=== PATIENT | female | born 1990 | race Caucasian/White ===

== ENCOUNTER 2022-10-08 17:18 | Inpatient (IN) | payer OTHER ==
[~2022-10-08 17:18] MED LIST: Bupivacaine 0.25% HCL 30 ML VIAL ONE; ePHEDrine Sulfate 50 MG/10 ML VIAL ONE
[2022-10-08] MEDS ORDERED: Misoprostol 200 MCG TAB PR PRN (19:17)
[2022-10-08] MEDS ORDERED: hydrALAZINE 20 MG/ML VIAL SLOW IVP PRN ×3 (19:17)
[2022-10-08] MEDS ORDERED: Docusate 100 MG CAP PO PRN (19:17)
[2022-10-08] MEDS ORDERED: HYDROcodone/Acetaminophen 5/325 mg Tablet PO PRN ×2 (19:17)
[2022-10-08] MEDS ORDERED: Diphenoxylate HCl/Atropine Tablet PO PRN ×2 (19:17)
[2022-10-08] MEDS ORDERED: Labetalol HCl 100 MG/20 ML VIAL SLOW IVP PRN ×2 (19:17)
[2022-10-08] MEDS ORDERED: Ondansetron PF 4 MG/2 ML Vial IVP PRN (19:17)
[2022-10-08] MEDS ORDERED: Lidocaine 1% (PF) 30 ML VIAL SC PRN (19:17)
[2022-10-08] MEDS ORDERED: Ibuprofen 800 MG TAB PO PRN (19:17)
[2022-10-08] MEDS ORDERED: Butorphanol Tartrate 1 MG/ML VIAL SLOW IVP PRN (19:17)
[2022-10-08] MEDS ORDERED: Lactated Ringer's 1,000 ML IV SCH (19:17)
[2022-10-08] MEDS ORDERED: Acetaminophen 500 MG TAB PO PRN (19:17)
[2022-10-08] MEDS ORDERED: Zolpidem Tartrate 5 MG TAB PO PRN (19:17)
[2022-10-08] MEDS ORDERED: Calcium Gluc 4.6 MEQ/10 ML (100 MG/ML) SLOW IVP PRN (19:17)
[2022-10-08] MEDS ORDERED: Promethazine HCl 25 MG/ML VIAL IM PRN (19:17)
[2022-10-08] MEDS ORDERED: NS w/ Oxytocin 30 units 500 ML IV SCH ×2 (19:17)
[2022-10-08] MEDS ORDERED: Carboprost 250 MCG/ML AMP IM PRN (19:17)
[2022-10-08] MEDS ORDERED: Lorazepam 2 MG/ML VIAL SLOW IVP PRN (19:17)
[2022-10-08 19:37] LABS: Mean Corpuscular HGB CONC 33.2 g/dL (32.0-36.0); Mean Corpuscular Hemoglobin 30.1 pg (27.0-33.0); Mean Corpuscular Volume 90.4 fl (81.6-98.3); Mean Platelet Volume 10.7 fl (7.4-10.4); Platelet Count 245 10x3/uL (150-450); RBC Distribution Width 14.6 % (11.5-14.5); Red Blood Cell (RBC) Count 3.66 10x6/uL (3.90-5.03); White Blood Cell (WBC) Count 12.6 10x3/uL (3.5-10.5)
[2022-10-08] MEDS ORDERED: Misoprostol 100 MCG TAB ONE (19:55)
[2022-10-08 19:56] LABS: Syphilis Antibody Nonreactive (Nonreactive); Syphilis Antibody Index 0.05 S/CO (<1.00 Non-Reactive)
[2022-10-08 19:58] LABS: HBSAg Index 0.33 S/CO (0-0.99); HIV (1/2) Antibody/Antigen Non-Reactive (NonReactive); HIV 1/2 INDEX 0.09 S/CO (<1.00); Hep B Surf Ag Non-Reactive S/CO (NonReactive)
[2022-10-08 20:06] LABS: SARS-CoV-2 NAA Rapid Test Not Detected (NotDetected)
[2022-10-08 20:08] LABS: ALT (SGPT) 21 U/L (8-55); AST (SGOT) 23 U/L (5-34); Albumin 3.7 g/dL (3.5-5.0); Alkaline Phosphatase 126 U/L (40-110); Anion Gap 18 mmol/L (10-20); BUN (Urea Nitrogen) 9 mg/dL (7.0-18.7); Bilirubin, Total 0.3 mg/dL (0.2-1.2); Calc. Creatinine Clearance 0 mL/min (70-130); Calcium 9.4 mg/dL (7.8-10.44); Carbon Dioxide 17 mmol/L (22-29); Chloride 104 mmol/L (98-107); Estimated GFR 111; Globulin 2.7 g/dL (2.4-3.5); Glucose 158 mg/dL (70-105); Potassium 4.1 mmol/L (3.5-5.1); Protein, Total 6.4 g/dL (6.0-8.3); Sodium 135 mmol/L (136-145)
[2022-10-08] MEDS ORDERED: Labetalol HCl 200 MG TAB PO SCH (21:00)
[2022-10-08] MEDS: Misoprostol 100 MCG TAB VAG SCH (23:55)
[2022-10-08 23:57] VITALS: BMI 34.1
[2022-10-09] MEDS ORDERED: Butorphanol Tartrate 1 MG/ML VIAL ONE (18:17)
[2022-10-09] MEDS ORDERED: Fentanyl 2 mcg/Bup 0.1% Cadd 100 ML ONE (19:32)
[2022-10-09] MEDS ORDERED: Naloxone HCl 0.4 mg/ml Vial IVP PRN ×2 (19:50)
[2022-10-09] MEDS ORDERED: Moisturizing Cream (Eucerin) 113 GM JAR TOP PRN (19:50)
[2022-10-09] MEDS ORDERED: diphenhydrAMINE 50 MG/ML VIAL IVP PRN (19:50)
[2022-10-09] MEDS ORDERED: Ondansetron PF 4 MG/2 ML Vial IVP PRN (19:50)
[2022-10-09] MEDS ORDERED: Acetaminophen 325 MG TAB PO PRN (19:50)
[2022-10-09] MEDS ORDERED: ePHEDrine Sulfate 50 MG/10 ML VIAL SLOW IVP PRN (19:50)
[2022-10-09] MEDS ORDERED: Promethazine HCl 25 MG/ML VIAL IM PRN (19:50)
[2022-10-09] MEDS ORDERED: Lactated Ringer's 500 ML IV PRN (19:50)
[2022-10-09] MEDS ORDERED: Fentanyl 2 mcg/Bupivacaine 0.1% Cassette 100 ML EPIDURAL SCH (20:00)
[2022-10-09] MEDS ORDERED: Communication Order-Pharmacy FS SCH (20:00)
[2022-10-10] MEDS ORDERED: Lidocaine 1% (PF) 30 ML VIAL ONE (06:06)
[2022-10-10] MEDS ORDERED: diphenhydrAMINE 25 MG CAP PO PRN (08:13)
[2022-10-10] MEDS ORDERED: HYDROcodone/Acetaminophen 5/325 mg Tablet PO PRN ×2 (08:13)
[2022-10-10] MEDS ORDERED: Misoprostol 200 MCG TAB VAG PRN (08:13)
[2022-10-10] MEDS ORDERED: Benzocaine-Menthol 82.5 ML CAN TOP PRN (08:13)
[2022-10-10] MEDS ORDERED: Milk Of Magnesia 30 ML UDCUP PO PRN (08:13)
[2022-10-10] MEDS ORDERED: Lanolin Ointment 7 GM TUBE TOP PRN (08:13)
[2022-10-10] MEDS ORDERED: Ondansetron PF 4 MG/2 ML Vial IVP PRN (08:13)
[2022-10-10] MEDS ORDERED: Bisacodyl 10 MG SUPP PR PRN (08:13)
[2022-10-10] MEDS ORDERED: Zolpidem Tartrate 5 MG TAB PO PRN (08:13)
[2022-10-10] MEDS ORDERED: Preparation H Ointment 28 GM TUBE PR PRN (08:13)
[2022-10-10] MEDS ORDERED: Boostrix 0.5 ML (Tdap) VIAL (>/=7 yrs of age) IM ONE (08:13)
[2022-10-10] MEDS ORDERED: hydrALAZINE 20 MG/ML VIAL SLOW IVP PRN (08:13)
[2022-10-10] MEDS ORDERED: Witch Hazel-Glycerin 1 EACH JAR TOP PRN (08:14)
[2022-10-10] MEDS ORDERED: Acetaminophen 325 MG TAB PO PRN (08:14)
[2022-10-10] MEDS ORDERED: NS w/ Oxytocin 30 units 500 ML IV SCH (08:15)
[2022-10-10] MEDS: Prenatal Vitamin 1 TAB PO SCH (14:30)
[2022-10-10] MEDS: Misoprostol 100 MCG TAB VAG SCH ×3 (14:30→14:32)
[2022-10-10] MEDS: Docusate 100 MG CAP PO SCH ×2 (14:30→21:22)
[2022-10-10] MEDS: Ibuprofen 800 MG TAB PO SCH ×2 (14:50→21:22)
[2022-10-10] MEDS: Ferrous Sulfate 325 MG TAB PO SCH (15:19)
[2022-10-11 04:18] LABS: Hemoglobin 9.5 g/dL (12.0-15.5); Mean Corpuscular HGB CONC 32.6 g/dL (32.0-36.0); Mean Corpuscular Hemoglobin 30.2 pg (27.0-33.0); Mean Corpuscular Volume 92.4 fl (81.6-98.3); Mean Platelet Volume 10.2 fl (7.4-10.4); Platelet Count 198 10x3/uL (150-450); RBC Distribution Width 14.8 % (11.5-14.5); Red Blood Cell (RBC) Count 3.15 10x6/uL (3.90-5.03); White Blood Cell (WBC) Count 15.1 10x3/uL (3.5-10.5)
[2022-10-11] MEDS: Ibuprofen 800 MG TAB PO SCH ×2 (06:01→13:43)
[2022-10-11 08:03] VITALS: BP 121/87; TEMP 97.8
[2022-10-11] MEDS: Prenatal Vitamin 1 TAB PO SCH (09:14)
[2022-10-11] MEDS: Docusate 100 MG CAP PO SCH (09:14)
[2022-10-11] MEDS: Ferrous Sulfate 325 MG TAB PO SCH (09:14)
== END 2022-10-11 16:10 | disposition home or self-care (01) | DRG 807 ==
LOC: CSHLD 17:18 → CSHPP 10-10 14:39
PROVIDERS: ADMIT Obstetrics & Gynecology; ATTEND Obstetrics & Gynecology
PROC: 10D07Z6 Extraction of Products of Conception, Vacuum, Via Natural or Artificial Opening (ICD-10-PCS; principal; 2022-10-10)
PROC: 0KQM0ZZ Repair Perineum Muscle, Open Approach (ICD-10-PCS; 2022-10-10)
PROC: 3E0P7VZ Introduction of Hormone into Female Reproductive, Via Natural or Artificial Opening (ICD-10-PCS; 2022-10-10)
DX: O13.4 Gestational [pregnancy-induced] hypertension without significant proteinuria, complicating childbirth (principal); Z37.0 Single live birth; Z3A.38 38 weeks gestation of pregnancy; Z20.822 Contact with and (suspected) exposure to COVID-19; D64.9 Anemia, unspecified; O99.02 Anemia complicating childbirth; Z86.16 Personal history of COVID-19; Z79.899 Other long term (current) drug therapy; O36.63X0 Maternal care for excessive fetal growth, third trimester, not applicable or unspecified; O32.8XX0 Maternal care for other malpresentation of fetus, not applicable or unspecified; O70.1 Second degree perineal laceration during delivery; O42.02 Full-term premature rupture of membranes, onset of labor within 24 hours of rupture
CPT/HCPCS: 36415; 51702; 80053; 82570; 83615; 84550; 85027; 86780; 86850; 86900; 86901; 87340; 87389; J0595; S0020; U0002